=== PATIENT | male | born 1935 | race Caucasian/White ===

== ENCOUNTER 2017-01-08 10:56 | Inpatient (IN) | payer OTHER ==
[~2017-01-08] VITALS: Ht 172.7 cm; Wt 114.2 kg
[~2017-01-08 10:56] MED LIST: ADVAIR HFA120 INHALA IH; ALEVE220 M2 PO; ASPIR 8181 M1 PO; CARVEDILOL3.125 MG PO; COMBIVENT RESPIM4 GM IH; FUROSEMIDE20 MG PO; FUROSEMIDE40 MG PO; LASIX20 MG PO; LASIX40 MG PO; LIPITOR40 MG PO; LIPITOR80 MG PO; LISINOPRIL2.5 MG PO; LO-DOSE ASPIRIN81 M1 PO; PREDNISONE10 MG PO; PRINIVIL5 MG PO; SPIRIVA1 INHALATI IH; SPIRONOLACTONE25 MG PO; VICTOZA 2-0.6 MG/0.1 SC; VICTOZA 2-0.6 MG/0.1 SQ; VISINE15 ML BOTH EYES; ZESTRIL2.5 MG PO; ZITHROMAX500 MG PO
[2017-01-08 11:45] LABS: BASOPHIL COUNT 0.1 K/uL (0-0.1); EOSINOPHIL (%) 1.1 % (0-5); EOSINOPHIL COUNT 0.1 K/uL (0-0.3); IMMATURE GRANULOCYTE (%) 0.5 % (0.0-0.7); INSTRUMENT ABS NEUTROPHIL CT 6.4 K/uL; MCH 31.4 PG (29.0-34.0); MCHC 32.2 G/DL (30.0-36.0); MCV 97.7 FL (86-99); MEAN PLAT.VOLUME 11.9 uM^3 (9.0-12.4); MONOCYTE (%) 6.6 % (3-12); MONOCYTE COUNT 0.5 K/uL (0-0.8); NEUTROPHIL (%) 78.8 % (45-76); NEUTROPHIL COUNT 6.4 K/uL (1.8-6.4); PLATELET COUNT 147 K/uL (156-360); RBC DIS.WIDTH-CV 12.5 % (11.8-14.6); RBC DIS.WIDTH-SD 45.1 % (39-53); RED BLOOD COUNT 4.71 M/uL (4.00-5.50); WHITE BLOOD COUNT 8.2 K/uL (4.1-10.2)
[2017-01-08 11:56] LABS: CHLORIDE 103 mEq/L (99-109); POTASSIUM 4.6 mEq/L (3.7-5.4); SODIUM 139 mEq/L (136-147)
[2017-01-08 11:58] LABS: GLUCOSE 163 mg/dL (70-99)
[2017-01-08 11:59] LABS: ANION GAP 9 MEQ/L (2-14)
[2017-01-08 12:00] LABS: TOTAL BILIRUBIN 1.3 mg/dL (0.0-1.0)
[2017-01-08 12:01] LABS: ALKALINE PHOSPHATASE 44 IU/L (3-129)
[2017-01-08 12:02] LABS: GFR ESTIMATE (CALCULATED) 34 mL/min/
[2017-01-08 12:03] LABS: UREA NITROGEN (BUN) 28 mg/dL (9-23)
[2017-01-08 12:11] LABS: TROP-I INTERPRETATION NEGATIVE; TROPONIN-I 0.04 ng/mL (0.0-0.30)
[2017-01-08] MEDS ORDERED: VICTOZA 2-0.6 MG/0.1 SC (14:38)
[2017-01-08] MEDS ORDERED: ARTIFICIAL SALIVA (14:40)
[2017-01-08] MEDS ORDERED: CYANOCOBALAM1000 MCG PO (14:41)
[2017-01-08] MEDS ORDERED: PROAIR HFA8.5 GM IH (14:43)
[2017-01-08] MEDS ORDERED: FUROSEMIDE40 MG PO (14:43)
[2017-01-08 17:40] VITALS: BP 106/59
[2017-01-08 18:16] LABS: TROP-I INTERPRETATION NEGATIVE; TROPONIN-I 0.03 ng/mL (0.0-0.30)
[2017-01-08 22:25] LABS: POINT-OF-CARE METER ID UU13113831
[2017-01-09 01:05] VITALS: BP 112/64
[2017-01-09 01:16] LABS: TROP-I INTERPRETATION NEGATIVE; TROPONIN-I 0.02 ng/mL (0.0-0.30)
[2017-01-09 05:04] VITALS: BP 102/56
[2017-01-09 07:19] LABS: POINT-OF-CARE METER ID UU14188625
[2017-01-09 07:23] VITALS: BP 93/60
[2017-01-09 07:34] LABS: HEMATOCRIT 42.8 % (38.0-50.0); MCHC 32.7 G/DL (30.0-36.0); MCV 94.9 FL (86-99); MEAN PLAT.VOLUME 12.5 uM^3 (9.0-12.4); PLATELET COUNT 154 K/uL (156-360); RBC DIS.WIDTH-CV 12.4 % (11.8-14.6); RBC DIS.WIDTH-SD 43.4 % (39-53); RED BLOOD COUNT 4.51 M/uL (4.00-5.50); WHITE BLOOD COUNT 8.9 K/uL (4.1-10.2)
[2017-01-09 08:02] LABS: ANION GAP 13 MEQ/L (2-14); CHLORIDE 100 MEQ/L (99-109); GFR ESTIMATE (CALCULATED) 39 mL/min/; GLUCOSE 154 mg/dL (70-99); MAGNESIUM 2.2 mg/dl (1.3-2.7); POTASSIUM 4.4 MEQ/L (3.7-5.4); SAMPLE HEMOLYSIS CHECK 0; SAMPLE ICTERIC CHECK 0; SAMPLE LIPEMIA CHECK 0; SODIUM 139 MEQ/L (136-147); UREA NITROGEN (BUN) 31 mg/dL (9-23)
[2017-01-09 08:28] LABS: Estimated Average Glucose 174 mg/dL (70-123); HEMOGLOBIN A1c (GLYCOHEMOGLOB) 7.7 % HGB (Below 5.7)
[2017-01-09 11:11] LABS: POINT-OF-CARE METER ID UU14174225
[2017-01-09 15:08] VITALS: BP 106/59
[2017-01-10] VITALS: BP 96/53
[2017-01-10 07:11] LABS: HEMATOCRIT 44.2 % (38.0-50.0); MCH 32.5 PG (29.0-34.0); MCHC 33.9 G/DL (30.0-36.0); MCV 95.7 FL (86-99); MEAN PLAT.VOLUME 12.5 uM^3 (9.0-12.4); PLATELET COUNT 167 K/uL (156-360); RBC DIS.WIDTH-CV 12.8 % (11.8-14.6); RBC DIS.WIDTH-SD 44.7 % (39-53); RED BLOOD COUNT 4.62 M/uL (4.00-5.50); WHITE BLOOD COUNT 9.3 K/uL (4.1-10.2)
[2017-01-10 07:35] LABS: ANION GAP 10 MEQ/L (2-14); CHLORIDE 99 MEQ/L (99-109); GFR ESTIMATE (CALCULATED) 36 mL/min/; GLUCOSE 137 mg/dL (70-99); POTASSIUM 4.2 MEQ/L (3.7-5.4); SAMPLE HEMOLYSIS CHECK 1; SAMPLE ICTERIC CHECK 0; SAMPLE LIPEMIA CHECK 0; SODIUM 137 MEQ/L (136-147); UREA NITROGEN (BUN) 42 mg/dL (9-23); URIC ACID 10.6 mg/dL (3.1-9.2)
[2017-01-10 07:36] LABS: POINT-OF-CARE METER ID UU14188625
[2017-01-10 07:39] VITALS: BP 141/80
[2017-01-10 11:03] LABS: POINT-OF-CARE METER ID UU14188625
[2017-01-10 13:08] LABS: ADD MIUA? NO; BILIRUBIN NEGATIVE; BLOOD NEGATIVE; COLOR STRAW ((YELLOW)); GLUCOSE (STRIP) NEGATIVE; KETONES NEGATIVE; LEUKOCYTES NEGATIVE; NITRITE NEGATIVE; PROTEIN (STRIP) NEGATIVE; SPECIFIC GRAVITY 1.006 (1.000-1.030); UROBILINOGEN 0.2 MG/DL (0.2-1.0)
[2017-01-10 13:50] LABS: UR CREATININE CONCENTRATION 31.3 MG/DL
[2017-01-10 14:31] VITALS: BP 84/52
[2017-01-10 16:05] LABS: POINT-OF-CARE METER ID UU14188625
[2017-01-10 21:02] LABS: POINT-OF-CARE METER ID UU14174225
[2017-01-11 06:38] LABS: ANION GAP 8 MEQ/L (2-14); CHLORIDE 98 MEQ/L (99-109); GFR ESTIMATE (CALCULATED) 34 mL/min/; GLUCOSE 151 mg/dL (70-99); POTASSIUM 3.7 MEQ/L (3.7-5.4); SAMPLE HEMOLYSIS CHECK 0; SAMPLE ICTERIC CHECK 0; SAMPLE LIPEMIA CHECK 0; SODIUM 138 MEQ/L (136-147); UREA NITROGEN (BUN) 42 mg/dL (9-23)
[2017-01-11 07:33] VITALS: BP 89/57
[2017-01-11 07:38] LABS: POINT-OF-CARE METER ID UU14188625
[2017-01-11 08:25] LABS: HEMATOCRIT 42.7 % (38.0-50.0); MCH 31.7 PG (29.0-34.0); MEAN PLAT.VOLUME 12.1 uM^3 (9.0-12.4); PLATELET COUNT 152 K/uL (156-360); RBC DIS.WIDTH-CV 12.7 % (11.8-14.6); RBC DIS.WIDTH-SD 45.1 % (39-53); RED BLOOD COUNT 4.45 M/uL (4.00-5.50); WHITE BLOOD COUNT 6.6 K/uL (4.1-10.2)
[2017-01-11 11:28] LABS: POINT-OF-CARE METER ID UU14188625
[2017-01-11 17:00] VITALS: BP 113/71
[2017-01-11 22:21] LABS: POINT-OF-CARE METER ID UU14188625
[2017-01-11 23:50] VITALS: BP 83/52
[2017-01-12 06:51] LABS: ANION GAP 7 MEQ/L (2-14); CHLORIDE 99 MEQ/L (99-109); GFR ESTIMATE (CALCULATED) 41 mL/min/; GLUCOSE 146 mg/dL (70-99); POTASSIUM 4.3 MEQ/L (3.7-5.4); SAMPLE HEMOLYSIS CHECK 2; SAMPLE ICTERIC CHECK 0; SAMPLE LIPEMIA CHECK 0; SODIUM 137 MEQ/L (136-147); UREA NITROGEN (BUN) 35 mg/dL (9-23)
[2017-01-12 07:33] LABS: POINT-OF-CARE METER ID UU14174225
[2017-01-12 07:45] VITALS: BP 95/55
[2017-01-12 11:23] LABS: POINT-OF-CARE METER ID UU14174225
[2017-01-12] MEDS ORDERED: ULORIC40 MG PO ×2 (11:29→13:25)
[2017-01-12] MEDS ORDERED: BUMETANIDE1 MG PO ×2 (11:29→13:25)
== END 2017-01-12 14:03 | disposition home or self-care (01) | DRG 291 ==
LOC: EME 10:56 → EDOF 15:53 → 5WEST 17:33 → 5SOUTH 01-09 04:17 → 5WEST 01-09 04:17 → 5SOUTH 01-09 04:57
PROVIDERS: Emergency Medicine; Family Medicine; Hospitalist; Internal Medicine; Internal Medicine Nephrology; Nurse Practitioner Adult Health; Physician Assistant Medical
DX: I13.0 Hypertensive heart and chronic kidney disease with heart failure and stage 1 through stage 4 chronic kidney disease, or unspecified chronic kidney disease (principal); I50.23 Acute on chronic systolic (congestive) heart failure; N18.3 Chronic kidney disease, stage 3 (moderate); E11.22 Type 2 diabetes mellitus with diabetic chronic kidney disease; I25.10 Atherosclerotic heart disease of native coronary artery without angina pectoris; J44.1 Chronic obstructive pulmonary disease with (acute) exacerbation; G47.33 Obstructive sleep apnea (adult) (pediatric); I42.9 Cardiomyopathy, unspecified; E78.5 Hyperlipidemia, unspecified; Z87.891 Personal history of nicotine dependence; N17.9 Acute kidney failure, unspecified; I95.9 Hypotension, unspecified; E66.9 Obesity, unspecified; Z68.38 Body mass index [BMI] 38.0-38.9, adult; K21.9 Gastro-esophageal reflux disease without esophagitis; J96.01 Acute respiratory failure with hypoxia
CPT/HCPCS: 71010; 71020; 71250; 76770; 80048; 80053; 80069; 81003; 82570; 82948; 83036; 83735; 83880; 84156; 84484; 84550; 85025; 85027; 93005; 94010; 94640; 94640 76; 94644; 99202; 99281; 99285; G0378; J1644; J1815; J1940; J2930

== ENCOUNTER 2017-02-17 07:24 | Day surgery (SDC) | payer OTHER ==
[~2017-02-17] VITALS: Ht 172.7 cm; Wt 111.0 kg
[~2017-02-17 07:24] MED LIST changes: +ALLOPURINOL100 MG PO; +ARTIFICIAL SALIVA; +BUMETANIDE1 MG PO; +CARVEDILOL6.25 MG PO; +CYANOCOBALAM1000 MCG PO; +LISINOPRIL5 MG PO; +PROAIR HFA8.5 GM IH; +PROVENTIL,2.5 MG/3 M IH; +ULORIC40 MG PO
[2017-02-17] MEDS ORDERED: ASPIR 8181 M1 PO (08:14)
[2017-02-17 09:04] LABS: POINT-OF-CARE METER ID UU13113696
== END 2017-02-17 16:40 | disposition home or self-care (01) ==
LOC: CATH 07:24
PROVIDERS: Internal Medicine Cardiovascular Disease
DX: I25.10 Atherosclerotic heart disease of native coronary artery without angina pectoris (principal); I42.0 Dilated cardiomyopathy; I13.0 Hypertensive heart and chronic kidney disease with heart failure and stage 1 through stage 4 chronic kidney disease, or unspecified chronic kidney disease; E11.22 Type 2 diabetes mellitus with diabetic chronic kidney disease; N18.3 Chronic kidney disease, stage 3 (moderate); I50.22 Chronic systolic (congestive) heart failure; E66.01 Morbid (severe) obesity due to excess calories; Z68.39 Body mass index [BMI] 39.0-39.9, adult; E78.2 Mixed hyperlipidemia; I45.10 Unspecified right bundle-branch block; Z79.82 Long term (current) use of aspirin
CPT/HCPCS: 82948; C1769; C1887; C1894; J1644; J1940; J2250; J3010

== ENCOUNTER 2017-03-17 11:34 | Inpatient (IN) | payer OTHER ==
[~2017-03-17] VITALS: Ht 172.7 cm; Wt 110.5 kg
[2017-03-17 12:13] LABS: HEMATOCRIT 44.9 % (38.0-50.0); MCH 31.1 PG (29.0-34.0); MCHC 33.6 G/DL (30.0-36.0); MCV 92.6 FL (86-99); MEAN PLAT.VOLUME 11.5 uM^3 (9.0-12.4); PLATELET COUNT 139 K/uL (156-360); RBC DIS.WIDTH-CV 12.7 % (11.8-14.6); RBC DIS.WIDTH-SD 43.4 % (39-53); RED BLOOD COUNT 4.85 M/uL (4.00-5.50); WHITE BLOOD COUNT 8.1 K/uL (4.1-10.2)
[2017-03-17 12:20] LABS: INTER. NORMALIZED RATIO 1.1; PROTHROMBIN TIME 12.4 SEC (10.2-12.9)
[2017-03-17 12:27] LABS: CHLORIDE 102 mEq/L (99-109); POTASSIUM 3.8 mEq/L (3.7-5.4); SODIUM 141 mEq/L (136-147)
[2017-03-17 12:28] LABS: GLUCOSE 148 mg/dL (70-99)
[2017-03-17 12:30] LABS: ANION GAP 10 MEQ/L (2-14)
[2017-03-17 12:32] LABS: GFR ESTIMATE (CALCULATED) 41 mL/min/
[2017-03-17 12:33] LABS: UREA NITROGEN (BUN) 25 mg/dL (9-23)
[2017-03-17 12:35] LABS: TROP-I INTERPRETATION NEGATIVE; TROPONIN-I 0.05 ng/mL (0.0-0.30)
[2017-03-17] MEDS ORDERED: SPIRIVA1 INHALATI IH (17:53)
[2017-03-17] MEDS ORDERED: LISINOPRIL2.5 MG PO (17:54)
[2017-03-17] MEDS ORDERED: BUMETANIDE2 MG PO (17:54)
[2017-03-17] MEDS ORDERED: ULORIC40 MG PO (17:55)
[2017-03-17] MEDS ORDERED: SPIRONOLACTONE25 MG PO (17:56)
[2017-03-17] MEDS ORDERED: VITAMIN B12-FO1 EACH PO (17:56)
[2017-03-17 19:43] LABS: TROP-I INTERPRETATION NEGATIVE; TROPONIN-I 0.05 ng/mL (0.0-0.30)
[2017-03-17 21:55] VITALS: BP 122/69
[2017-03-18] VITALS (7 sets, daily range): BP systolic 81–117; BP diastolic 50–73
[2017-03-18 00:16] LABS: POINT-OF-CARE METER ID UU14174225
[2017-03-18 01:46] LABS: TROP-I INTERPRETATION NEGATIVE; TROPONIN-I 0.04 ng/mL (0.0-0.30)
[2017-03-18 06:39] LABS: ANION GAP 11 MEQ/L (2-14); CHLORIDE 100 MEQ/L (99-109); GFR ESTIMATE (CALCULATED) 44 mL/min/; GLUCOSE 177 mg/dL (70-99); POTASSIUM 4.1 MEQ/L (3.7-5.4); SAMPLE HEMOLYSIS CHECK 0; SAMPLE ICTERIC CHECK 0; SAMPLE LIPEMIA CHECK 0; SODIUM 139 MEQ/L (136-147); UREA NITROGEN (BUN) 29 mg/dL (9-23)
[2017-03-18 07:26] LABS: POINT-OF-CARE METER ID UU13113717
[2017-03-18 11:33] LABS: POINT-OF-CARE METER ID UU13113717
[2017-03-18 17:41] LABS: POINT-OF-CARE METER ID UU13113717
[2017-03-18 21:41] LABS: POINT-OF-CARE METER ID UU13113717
[2017-03-19 03:57] VITALS: BP 113/55
[2017-03-19 07:56] VITALS: BP 95/67
[2017-03-19 12:32] LABS: ANION GAP 12 MEQ/L (2-14); CHLORIDE 98 MEQ/L (99-109); GFR ESTIMATE (CALCULATED) 48 mL/min/; GLUCOSE 242 mg/dL (70-99); MAGNESIUM 2.1 mg/dl (1.3-2.7); POTASSIUM 4.5 MEQ/L (3.7-5.4); SAMPLE HEMOLYSIS CHECK 0; SAMPLE ICTERIC CHECK 0; SAMPLE LIPEMIA CHECK 0; SODIUM 134 MEQ/L (136-147); UREA NITROGEN (BUN) 43 mg/dL (9-23)
[2017-03-19 12:33] LABS: POINT-OF-CARE METER ID UU14188625
[2017-03-19 12:46] VITALS: BP 114/63
[2017-03-19 15:52] VITALS: BP 105/68
[2017-03-19 20:16] VITALS: BP 114/73
[2017-03-19 23:53] VITALS: BP 108/72
[2017-03-20 03:39] VITALS: BP 112/78
[2017-03-20 07:41] LABS: POINT-OF-CARE METER ID UU14188625
[2017-03-20 07:46] VITALS: BP 132/82
[2017-03-20 10:12] LABS: HEMATOCRIT 48.6 % (38.0-50.0); MCH 31.5 PG (29.0-34.0); MCHC 33.5 G/DL (30.0-36.0); MCV 93.8 FL (86-99); MEAN PLAT.VOLUME 12.5 uM^3 (9.0-12.4); PLATELET COUNT 186 K/uL (156-360); RBC DIS.WIDTH-CV 13.1 % (11.8-14.6); RBC DIS.WIDTH-SD 44.8 % (39-53); RED BLOOD COUNT 5.18 M/uL (4.00-5.50); WHITE BLOOD COUNT 12.3 K/uL (4.1-10.2)
[2017-03-20 10:18] LABS: ANION GAP 14 MEQ/L (2-14); CHLORIDE 93 MEQ/L (99-109); GFR ESTIMATE (CALCULATED) 36 mL/min/; GLUCOSE 267 mg/dL (70-99); POTASSIUM 4.8 MEQ/L (3.7-5.4); SAMPLE HEMOLYSIS CHECK 0; SAMPLE ICTERIC CHECK 0; SAMPLE LIPEMIA CHECK 0; SODIUM 134 MEQ/L (136-147); UREA NITROGEN (BUN) 53 mg/dL (9-23)
[2017-03-20] MEDS ORDERED: PREDNISONE20 MG PO (10:43)
[2017-03-20 11:13] VITALS: BP 111/73
[2017-03-20 11:19] LABS: POINT-OF-CARE METER ID UU14188625
== END 2017-03-20 13:23 | disposition home health service (06) | DRG 291 ==
LOC: EME 11:34 → 5SOUTH 17:57 → EDOF 17:57 → 5SOUTH 21:36
PROVIDERS: Emergency Medicine; Hospitalist; Internal Medicine; Physician Assistant Medical
DX: I50.23 Acute on chronic systolic (congestive) heart failure (principal); J96.01 Acute respiratory failure with hypoxia; J44.1 Chronic obstructive pulmonary disease with (acute) exacerbation; I25.5 Ischemic cardiomyopathy; E11.22 Type 2 diabetes mellitus with diabetic chronic kidney disease; I13.0 Hypertensive heart and chronic kidney disease with heart failure and stage 1 through stage 4 chronic kidney disease, or unspecified chronic kidney disease; N18.3 Chronic kidney disease, stage 3 (moderate); G47.33 Obstructive sleep apnea (adult) (pediatric); I25.10 Atherosclerotic heart disease of native coronary artery without angina pectoris; I47.2 Ventricular tachycardia; J98.11 Atelectasis; E78.5 Hyperlipidemia, unspecified; K58.0 Irritable bowel syndrome with diarrhea; K21.9 Gastro-esophageal reflux disease without esophagitis; Z68.37 Body mass index [BMI] 37.0-37.9, adult; Z79.4 Long term (current) use of insulin; Z79.82 Long term (current) use of aspirin; Z87.891 Personal history of nicotine dependence; Z79.899 Other long term (current) drug therapy
CPT/HCPCS: 71020; 80048; 82948; 83735; 83880; 84484; 85027; 85610; 85730; 93005; 94640; 94640 76; 94760; 94799; 99202; 99281; 99285; J1644; J1815; J1940; J2920; J2930; J7512

== ENCOUNTER 2017-04-06 14:49 | Inpatient (IN) | payer OTHER ==
[~2017-04-06] VITALS: Ht 1849.1 cm; Wt 111.0 kg
[~2017-04-06 14:49] MED LIST changes: +BUMETANIDE2 MG PO; +PREDNISONE20 MG PO; +VITAMIN B12-FO1 EACH PO
[2017-04-06 15:25] LABS: HEMATOCRIT 43.9 % (38.0-50.0); MCH 31.3 PG (29.0-34.0); MCHC 33.3 G/DL (30.0-36.0); MCV 94.2 FL (86-99); MEAN PLAT.VOLUME 11.4 uM^3 (9.0-12.4); PLATELET COUNT 137 K/uL (156-360); RBC DIS.WIDTH-CV 13.8 % (11.8-14.6); RED BLOOD COUNT 4.66 M/uL (4.00-5.50); WHITE BLOOD COUNT 10.3 K/uL (4.1-10.2)
[2017-04-06 15:33] LABS: CHLORIDE 97 mEq/L (99-109); POTASSIUM 3.8 mEq/L (3.7-5.4); SODIUM 136 mEq/L (136-147)
[2017-04-06 15:36] LABS: GLUCOSE 118 mg/dL (70-99)
[2017-04-06 15:37] LABS: ANION GAP 9 MEQ/L (2-14)
[2017-04-06 15:38] LABS: TOTAL BILIRUBIN 1.2 mg/dL (0.0-1.0)
[2017-04-06 15:39] LABS: ALKALINE PHOSPHATASE 63 IU/L (3-129); GFR ESTIMATE (CALCULATED) 36 mL/min/
[2017-04-06 15:40] LABS: UREA NITROGEN (BUN) 35 mg/dL (9-23)
[2017-04-06 15:46] LABS: TROP-I INTERPRETATION NEGATIVE; TROPONIN-I 0.04 ng/mL (0.0-0.30)
[2017-04-07 00:01] LABS: TROP-I INTERPRETATION NEGATIVE; TROPONIN-I 0.04 ng/mL (0.0-0.30)
[2017-04-07 06:31] LABS: HEMATOCRIT 41.9 % (38.0-50.0); MCH 31.1 PG (29.0-34.0); MCHC 33.4 G/DL (30.0-36.0); MCV 93.1 FL (86-99); MEAN PLAT.VOLUME 11.6 uM^3 (9.0-12.4); PLATELET COUNT 127 K/uL (156-360); RBC DIS.WIDTH-CV 13.7 % (11.8-14.6); RBC DIS.WIDTH-SD 46.3 % (39-53); WHITE BLOOD COUNT 6.8 K/uL (4.1-10.2)
[2017-04-07 06:53] LABS: ANION GAP 10 MEQ/L (2-14); CHLORIDE 94 MEQ/L (99-109); GFR ESTIMATE (CALCULATED) 36 mL/min/; SAMPLE HEMOLYSIS CHECK 0; SAMPLE ICTERIC CHECK 0; SAMPLE LIPEMIA CHECK 0; SODIUM 133 MEQ/L (136-147); UREA NITROGEN (BUN) 39 mg/dL (9-23)
[2017-04-07 07:05] LABS: GLUCOSE 252 mg/dL (70-99)
[2017-04-07 07:30] VITALS: BP 98/65
[2017-04-07 07:45] LABS: Estimated Average Glucose 157 mg/dL (70-123); HEMOGLOBIN A1c (GLYCOHEMOGLOB) 7.1 % HGB (Below 5.7)
[2017-04-07] MEDS ORDERED: ALDACTONE25 MG PO (09:31)
[2017-04-07] MEDS ORDERED: ZESTRIL2.5 MG PO (09:32)
[2017-04-07 16:14] VITALS: BP 93/50
[2017-04-07 16:17] VITALS: BP 102/53
[2017-04-07 23:36] LABS: TROP-I INTERPRETATION NEGATIVE; TROPONIN-I 0.02 ng/mL (0.0-0.30)
[2017-04-08 00:03] VITALS: BP 97/62
[2017-04-08 04:30] VITALS: BP 98/65
[2017-04-08 07:10] VITALS: BP 100/67
[2017-04-08 07:31] LABS: EOSINOPHIL (%) 0 % (0-5); HEMATOCRIT 44.9 % (38.0-50.0); IMMATURE GRANULOCYTE (%) 0.4 % (0.0-0.7); INSTRUMENT ABS NEUTROPHIL CT 9.9 K/uL; LYMPHOCYTE COUNT 0.8 K/uL (1.0-2.8); MCH 32.5 PG (29.0-34.0); MCHC 34.7 G/DL (30.0-36.0); MCV 93.5 FL (86-99); MEAN PLAT.VOLUME 11.7 uM^3 (9.0-12.4); MONOCYTE (%) 3.3 % (3-12); MONOCYTE COUNT 0.4 K/uL (0-0.8); NEUTROPHIL (%) 89.4 % (45-76); NEUTROPHIL COUNT 9.9 K/uL (1.8-6.4); PLATELET COUNT 139 K/uL (156-360); RBC DIS.WIDTH-CV 13.8 % (11.8-14.6); RBC DIS.WIDTH-SD 46.5 % (39-53); WHITE BLOOD COUNT 11.1 K/uL (4.1-10.2)
[2017-04-08 07:47] LABS: ADD MIUA? YES; BILIRUBIN NEGATIVE; BLOOD NEGATIVE; COLOR YELLOW ((YELLOW)); GLUCOSE (STRIP) NEGATIVE; KETONES NEGATIVE; LEUKOCYTES MODERATE; NITRITE NEGATIVE; PROTEIN (STRIP) NEGATIVE; UROBILINOGEN 0.2 MG/DL (0.2-1.0)
[2017-04-08 07:58] LABS: ALKALINE PHOSPHATASE 54 IU/L (3-129); ANION GAP 11 MEQ/L (2-14); CHLORIDE 96 MEQ/L (99-109); GFR ESTIMATE (CALCULATED) 32 mL/min/; GLUCOSE 191 mg/dL (70-99); MAGNESIUM 1.9 mg/dl (1.3-2.7); POTASSIUM 4.3 MEQ/L (3.7-5.4); SAMPLE HEMOLYSIS CHECK 0; SAMPLE ICTERIC CHECK 0; SAMPLE LIPEMIA CHECK 0; SODIUM 134 MEQ/L (136-147); TOTAL BILIRUBIN 0.8 MG/DL (0.0-1.0); UREA NITROGEN (BUN) 47 mg/dL (9-23); URIC ACID 10.5 mg/dL (3.1-9.2)
[2017-04-08 08:05] LABS: BACTERIA RARE /HPF; EPITHELIAL CELLS NONE SEEN /HPF; MUCUS TRACE /LPF; RED BLOOD CELLS 0-5 /HPF (0-5); WHITE BLOOD CELLS 0-5 /HPF (0-5)
[2017-04-08 10:34] LABS: UR CREATININE CONCENTRATION 71.2 MG/DL
[2017-04-08 11:48] LABS: POINT-OF-CARE METER ID UU13113725
[2017-04-08 11:50] VITALS: BP 103/66
[2017-04-08 15:40] VITALS: BP 90/64
[2017-04-08 22:07] LABS: POINT-OF-CARE METER ID UU13113725
[2017-04-09] VITALS (8 sets, daily range): BP systolic 90–106; BP diastolic 52–66
[2017-04-09 05:51] LABS: POINT-OF-CARE METER ID UU13113725
[2017-04-09 06:31] LABS: ANION GAP 11 MEQ/L (2-14); CHLORIDE 93 MEQ/L (99-109); GFR ESTIMATE (CALCULATED) 31 mL/min/; GLUCOSE 203 mg/dL (70-99); POTASSIUM 4.6 MEQ/L (3.7-5.4); SAMPLE HEMOLYSIS CHECK 0; SAMPLE ICTERIC CHECK 0; SAMPLE LIPEMIA CHECK 0; SODIUM 134 MEQ/L (136-147); UREA NITROGEN (BUN) 55 mg/dL (9-23)
[2017-04-09] MEDS ORDERED: ELIQUIS2.5 MG PO (10:07)
[2017-04-09] MEDS ORDERED: DELTASONE20 M1 PO ×2 (11:05→12:29)
[2017-04-09] MEDS ORDERED: DUONEB 2.5-0.5 M3 ML AEROSOL ×2 (11:10→12:29)
[2017-04-09] MEDS ORDERED: ALLOPURINOL100 MG PO (11:39)
[2017-04-09] MEDS ORDERED: BUMETANIDE2 MG PO ×2 (11:39→12:29)
[2017-04-09 11:55] LABS: POINT-OF-CARE METER ID UU13113725
[2017-04-09] MEDS ORDERED: SPIRIVA1 INHALATI IH (12:28)
[2017-04-09] MEDS ORDERED: VICTOZA 2-0.6 MG/0.1 SC (12:28)
[2017-04-09] MEDS ORDERED: ALDACTONE25 MG PO (12:28)
[2017-04-09] MEDS ORDERED: ZESTRIL2.5 MG PO (12:28)
[2017-04-09 17:07] LABS: POINT-OF-CARE METER ID UU13113725
== END 2017-04-09 18:05 | disposition home health service (06) | DRG 291 ==
LOC: EME 14:49 → 5EAST 22:36 → EDOF 22:36 → ENRESERV 22:44 → 5EAST 04-07 00:14 → ENPENDDIS 04-09 → 5EAST 04-09 18:05
PROVIDERS: Hospitalist; Internal Medicine Nephrology
DX: I13.0 Hypertensive heart and chronic kidney disease with heart failure and stage 1 through stage 4 chronic kidney disease, or unspecified chronic kidney disease (principal); J44.1 Chronic obstructive pulmonary disease with (acute) exacerbation; I50.23 Acute on chronic systolic (congestive) heart failure; N18.3 Chronic kidney disease, stage 3 (moderate); E11.22 Type 2 diabetes mellitus with diabetic chronic kidney disease; E66.01 Morbid (severe) obesity due to excess calories; E78.5 Hyperlipidemia, unspecified; G47.33 Obstructive sleep apnea (adult) (pediatric); I25.10 Atherosclerotic heart disease of native coronary artery without angina pectoris; I25.82 Chronic total occlusion of coronary artery; I48.91 Unspecified atrial fibrillation; Z91.19 Patient's noncompliance with other medical treatment and regimen; Z91.11 Patient's noncompliance with dietary regimen; K58.9 Irritable bowel syndrome, unspecified; K21.9 Gastro-esophageal reflux disease without esophagitis; I42.8 Other cardiomyopathies; Z68.37 Body mass index [BMI] 37.0-37.9, adult
CPT/HCPCS: 71020; 80048; 80053; 81003; 82570; 82948; 83036; 83735; 83880; 84100; 84156; 84443; 84484; 84550; 85025; 85027; 93005; 94640; 94640 76; 94760; 94799; 99202; 99281; 99285; J1644; J1815; J1940; J1956; J2920; J2930; J7040

== ENCOUNTER 2017-04-24 23:02 | Inpatient (IN) | payer OTHER ==
[~2017-04-24] VITALS: Ht 172.7 cm; Wt 118.0 kg
[~2017-04-24 23:02] MED LIST changes: +ALDACTONE25 MG PO; +DELTASONE20 M1 PO; +DUONEB 2.5-0.5 M3 ML AEROSOL; +ELIQUIS2.5 MG PO
[2017-04-25 00:31] LABS: HEMATOCRIT 47.9 % (38.0-50.0); MCH 31.8 PG (29.0-34.0); MCHC 33.4 G/DL (30.0-36.0); MCV 95.2 FL (86-99); MEAN PLAT.VOLUME 11.2 uM^3 (9.0-12.4); PLATELET COUNT 134 K/uL (156-360); RBC DIS.WIDTH-CV 14.5 % (11.8-14.6); RBC DIS.WIDTH-SD 49.8 % (39-53); RED BLOOD COUNT 5.03 M/uL (4.00-5.50); WHITE BLOOD COUNT 8.9 K/uL (4.1-10.2)
[2017-04-25 00:38] LABS: INTER. NORMALIZED RATIO 1.2; PROTHROMBIN TIME 13.4 SEC (10.2-12.9)
[2017-04-25 00:40] LABS: PTT 32.8 SEC (25-37)
[2017-04-25 00:41] LABS: ADD MIUA? NO; BILIRUBIN NEGATIVE; BLOOD NEGATIVE; COLOR YELLOW ((YELLOW)); GLUCOSE (STRIP) NEGATIVE; KETONES NEGATIVE; LEUKOCYTES NEGATIVE; NITRITE NEGATIVE; PROTEIN (STRIP) NEGATIVE; SPECIFIC GRAVITY 1.014 (1.000-1.030); UCUL ADDED? NO
[2017-04-25 00:44] LABS: CHLORIDE 95 mEq/L (99-109); SODIUM 138 mEq/L (136-147)
[2017-04-25 00:46] LABS: GLUCOSE 124 mg/dL (70-99)
[2017-04-25 00:47] LABS: ANION GAP 12 MEQ/L (2-14)
[2017-04-25 00:48] LABS: TOTAL BILIRUBIN 1.2 mg/dL (0.0-1.0)
[2017-04-25 00:49] LABS: ALKALINE PHOSPHATASE 62 IU/L (3-129)
[2017-04-25 00:50] LABS: GFR ESTIMATE (CALCULATED) 32 mL/min/
[2017-04-25 00:51] LABS: UREA NITROGEN (BUN) 37 mg/dL (9-23)
[2017-04-25 00:52] LABS: TROP-I INTERPRETATION NEGATIVE; TROPONIN-I 0.06 ng/mL (0.0-0.30)
[2017-04-25 00:53] LABS: LIPASE 40 U/L (1.0-51.0)
[2017-04-25 03:11] VITALS: BP 103/73
[2017-04-25 06:33] LABS: HEMATOCRIT 45.4 % (38.0-50.0); MCH 30.8 PG (29.0-34.0); MCHC 32.4 G/DL (30.0-36.0); MCV 95.2 FL (86-99); MEAN PLAT.VOLUME 11.6 uM^3 (9.0-12.4); PLATELET COUNT 127 K/uL (156-360); RBC DIS.WIDTH-CV 14.3 % (11.8-14.6); RBC DIS.WIDTH-SD 49.4 % (39-53); RED BLOOD COUNT 4.77 M/uL (4.00-5.50); WHITE BLOOD COUNT 8.3 K/uL (4.1-10.2)
[2017-04-25 07:10] LABS: TROP-I INTERPRETATION NEGATIVE; TROPONIN-I 0.05 ng/mL (0.0-0.30)
[2017-04-25 07:11] LABS: ANION GAP 8 MEQ/L (2-14); CHLORIDE 94 MEQ/L (99-109); GFR ESTIMATE (CALCULATED) 34 mL/min/; GLUCOSE 107 mg/dL (70-99); SAMPLE HEMOLYSIS CHECK 0; SAMPLE ICTERIC CHECK 0; SAMPLE LIPEMIA CHECK 0; SODIUM 136 MEQ/L (136-147); UREA NITROGEN (BUN) 34 mg/dL (9-23)
[2017-04-25 07:12] LABS: POTASSIUM 3.7 MEQ/L (3.7-5.4)
[2017-04-25 08:14] VITALS: BP 97/55
[2017-04-25 08:46] LABS: POINT-OF-CARE METER ID UU14174225
[2017-04-25 12:00] VITALS: BP 104/69
[2017-04-25 12:34] LABS: TROP-I INTERPRETATION NEGATIVE; TROPONIN-I 0.04 ng/mL (0.0-0.30)
[2017-04-25 15:47] VITALS: BP 116/86
[2017-04-25 19:46] VITALS: BP 111/63
[2017-04-25 22:03] LABS: ANION GAP 13 MEQ/L (2-14); CHLORIDE 92 MEQ/L (99-109); GFR ESTIMATE (CALCULATED) 31 mL/min/; GLUCOSE 121 mg/dL (70-99); POTASSIUM 4.3 MEQ/L (3.7-5.4); SAMPLE HEMOLYSIS CHECK 0; SAMPLE ICTERIC CHECK 0; SAMPLE LIPEMIA CHECK 0; SODIUM 133 MEQ/L (136-147); UREA NITROGEN (BUN) 34 mg/dL (9-23)
[2017-04-26] VITALS: BP 94/64
[2017-04-26 08:37] LABS: POINT-OF-CARE METER ID UU14174225
[2017-04-26 08:40] VITALS: BP 133/63
[2017-04-26] MEDS ORDERED: LO-DOSE ASPIRIN81 M1 PO (11:24)
[2017-04-26] MEDS ORDERED: PROAIR HFA8.5 GM IH (11:25)
[2017-04-26] MEDS ORDERED: VICTOZA 2-0.6 MG/0.1 SC (11:25)
[2017-04-26] MEDS ORDERED: ALLOPURINOL100 MG PO (11:26)
[2017-04-26] MEDS ORDERED: PROVENTIL,2.5 MG/3 M IH (11:29)
[2017-04-26] MEDS ORDERED: BUMETANIDE2 MG PO (11:29)
[2017-04-26] MEDS ORDERED: SPIRIVA1 INHALATI IH (11:29)
[2017-04-26] MEDS ORDERED: ALDACTONE25 MG PO (11:30)
[2017-04-26] MEDS ORDERED: ELIQUIS2.5 MG PO (11:30)
[2017-04-26] MEDS ORDERED: LISINOPRIL2.5 MG PO (11:30)
[2017-04-26] MEDS ORDERED: SYMBICORT60 INHALAT IH (11:31)
[2017-04-26 12:09] LABS: POINT-OF-CARE METER ID UU14174225
[2017-04-26 12:23] LABS: ANION GAP 8 MEQ/L (2-14); CHLORIDE 93 MEQ/L (99-109); POTASSIUM 3.7 MEQ/L (3.7-5.4); SAMPLE HEMOLYSIS CHECK 0; SAMPLE ICTERIC CHECK 0; SAMPLE LIPEMIA CHECK 0; SODIUM 134 MEQ/L (136-147)
[2017-04-26 12:30] LABS: GFR ESTIMATE (CALCULATED) 34 mL/min/; GLUCOSE 88 mg/dL (70-99); UREA NITROGEN (BUN) 38 mg/dL (9-23)
[2017-04-26 17:20] LABS: POINT-OF-CARE METER ID UU14174225
[2017-04-26 17:54] VITALS: BP 128/64
[2017-04-26 20:05] VITALS: BP 76/57
[2017-04-26 20:21] VITALS: BP 80/60
[2017-04-26 22:29] VITALS: BP 114/82
[2017-04-27 04:00] VITALS: BP 81/60
[2017-04-27 07:18] LABS: ANION GAP 11 MEQ/L (2-14); CHLORIDE 93 MEQ/L (99-109); GFR ESTIMATE (CALCULATED) 28 mL/min/; POTASSIUM 3.6 MEQ/L (3.7-5.4); SAMPLE HEMOLYSIS CHECK 0; SAMPLE ICTERIC CHECK 0; SAMPLE LIPEMIA CHECK 0; SODIUM 135 MEQ/L (136-147); UREA NITROGEN (BUN) 41 mg/dL (9-23)
[2017-04-27 07:19] LABS: GLUCOSE 179 mg/dL (70-99)
[2017-04-27 07:36] VITALS: BP 89/50
[2017-04-27 11:25] VITALS: BP 102/63
[2017-04-27 15:28] VITALS: BP 82/60
[2017-04-27 20:11] VITALS: BP 86/62
[2017-04-27 23:23] VITALS: BP 86/49
[2017-04-28 04:05] VITALS: BP 89/64
[2017-04-28 06:02] LABS: HEMATOCRIT 43.5 % (38.0-50.0); MCH 31.3 PG (29.0-34.0); MCHC 33.3 G/DL (30.0-36.0); PLATELET COUNT 128 K/uL (156-360); RBC DIS.WIDTH-CV 14.2 % (11.8-14.6); RBC DIS.WIDTH-SD 48.5 % (39-53); RED BLOOD COUNT 4.63 M/uL (4.00-5.50); WHITE BLOOD COUNT 8.1 K/uL (4.1-10.2)
[2017-04-28 06:35] LABS: ANION GAP 10 MEQ/L (2-14); CHLORIDE 92 MEQ/L (99-109); GFR ESTIMATE (CALCULATED) 32 mL/min/; POTASSIUM 3.9 MEQ/L (3.7-5.4); SAMPLE HEMOLYSIS CHECK 0; SAMPLE ICTERIC CHECK 0; SAMPLE LIPEMIA CHECK 0; SODIUM 135 MEQ/L (136-147); UREA NITROGEN (BUN) 43 mg/dL (9-23)
[2017-04-28 06:36] LABS: GLUCOSE 111 mg/dL (70-99)
[2017-04-28 08:22] VITALS: BP 92/62
[2017-04-28 08:44] LABS: MAGNESIUM 1.9 mg/dl (1.3-2.7)
[2017-04-28 11:49] LABS: POINT-OF-CARE METER ID UU14174225
[2017-04-28 12:04] VITALS: BP 93/66
[2017-04-28 16:17] VITALS: BP 107/75
[2017-04-28 19:44] VITALS: BP 96/62
[2017-04-28 21:05] LABS: POINT-OF-CARE METER ID UU13113717
[2017-04-28 23:32] VITALS: BP 118/58
[2017-04-29 03:54] VITALS: BP 110/78
[2017-04-29 06:26] LABS: HEMATOCRIT 46.7 % (38.0-50.0); MCH 31.2 PG (29.0-34.0); MCV 94.5 FL (86-99); MEAN PLAT.VOLUME 11.2 uM^3 (9.0-12.4); PLATELET COUNT 140 K/uL (156-360); RBC DIS.WIDTH-CV 14.2 % (11.8-14.6); RBC DIS.WIDTH-SD 49.1 % (39-53); RED BLOOD COUNT 4.94 M/uL (4.00-5.50); WHITE BLOOD COUNT 7.7 K/uL (4.1-10.2)
[2017-04-29 06:54] LABS: ANION GAP 12 MEQ/L (2-14); CHLORIDE 91 MEQ/L (99-109); GFR ESTIMATE (CALCULATED) 31 mL/min/; GLUCOSE 120 mg/dL (70-99); SAMPLE HEMOLYSIS CHECK 1; SAMPLE ICTERIC CHECK 0; SAMPLE LIPEMIA CHECK 0; SODIUM 136 MEQ/L (136-147); UREA NITROGEN (BUN) 47 mg/dL (9-23)
[2017-04-29 07:30] LABS: POINT-OF-CARE METER ID UU14174225
[2017-04-29 08:02] VITALS: BP 107/65
[2017-04-29 12:34] LABS: POINT-OF-CARE METER ID UU14174225
[2017-04-29 13:15] VITALS: BP 101/70
[2017-04-29 16:34] VITALS: BP 104/72
[2017-04-29 16:48] LABS: POINT-OF-CARE METER ID UU14174225
[2017-04-29 20:03] VITALS: BP 119/76
[2017-04-30 00:53] VITALS: BP 108/71
[2017-04-30 04:55] VITALS: BP 113/74
[2017-04-30 07:23] LABS: ANION GAP 11 MEQ/L (2-14); CHLORIDE 90 MEQ/L (99-109); GFR ESTIMATE (CALCULATED) 31 mL/min/; GLUCOSE 121 mg/dL (70-99); POTASSIUM 3.8 MEQ/L (3.7-5.4); SAMPLE HEMOLYSIS CHECK 0; SAMPLE ICTERIC CHECK 0; SAMPLE LIPEMIA CHECK 0; SODIUM 138 MEQ/L (136-147); UREA NITROGEN (BUN) 47 mg/dL (9-23)
[2017-04-30 08:00] VITALS: BP 89/64
[2017-04-30 08:39] LABS: POINT-OF-CARE METER ID UU13113717
[2017-04-30 11:05] VITALS: BP 114/65
[2017-04-30] MEDS ORDERED: K-DUR20 MEQ PO (11:09)
[2017-04-30] MEDS ORDERED: MIDODRINE HCL5 MG PO (11:09)
[2017-04-30] MEDS ORDERED: METOLAZONE5 MG PO (11:10)
== END 2017-04-30 14:00 | disposition home health service (06) | DRG 292 ==
LOC: EME 23:02 → EDOF 04-25 02:11 → 5SOUTH 04-25 02:11 → ENRESERV 04-25 02:13 → 5SOUTH 04-25 03:09
PROVIDERS: Emergency Medicine; Hospitalist; Internal Medicine; Internal Medicine Nephrology; Nurse Practitioner Adult Health
DX: I50.23 Acute on chronic systolic (congestive) heart failure (principal); N18.3 Chronic kidney disease, stage 3 (moderate); E11.22 Type 2 diabetes mellitus with diabetic chronic kidney disease; I48.2 Chronic atrial fibrillation; E78.5 Hyperlipidemia, unspecified; I13.0 Hypertensive heart and chronic kidney disease with heart failure and stage 1 through stage 4 chronic kidney disease, or unspecified chronic kidney disease; I25.10 Atherosclerotic heart disease of native coronary artery without angina pectoris; J44.9 Chronic obstructive pulmonary disease, unspecified; I47.2 Ventricular tachycardia; G47.33 Obstructive sleep apnea (adult) (pediatric); I42.9 Cardiomyopathy, unspecified; I45.10 Unspecified right bundle-branch block; I34.0 Nonrheumatic mitral (valve) insufficiency; Z68.38 Body mass index [BMI] 38.0-38.9, adult; Z91.19 Patient's noncompliance with other medical treatment and regimen; Z91.14 Patient's other noncompliance with medication regimen; Z72.0 Tobacco use; Z79.82 Long term (current) use of aspirin; Z79.01 Long term (current) use of anticoagulants
CPT/HCPCS: 71010; 76705; 80048; 80048 91; 80053; 81003; 82948; 83605; 83690; 83735; 83880; 84484; 85027; 85610; 85730; 87040; 93005; 93970; 94640; 94640 76; 94660; 99281; 99285; J1815

== ENCOUNTER 2017-09-01 11:45 | Emergency (ER) | payer OTHER ==
[~2017-09-01] VITALS: Ht 172.7 cm; Wt 108.8 kg
[~2017-09-01 11:45] MED LIST changes: +K-DUR20 MEQ PO; +METOLAZONE5 MG PO; +MIDODRINE HCL5 MG PO; +SYMBICORT60 INHALAT IH
[2017-09-01 15:12] VITALS: BP 97/75
== END 2017-09-01 15:46 | disposition home or self-care (01) ==
LOC: EME 11:45
PROC: 0HQ0XZZ Repair Scalp Skin, External Approach (ICD-10-PCS; principal; 2017-09-01)
DX: S01.01XA Laceration without foreign body of scalp, initial encounter (principal); S09.90XA Unspecified injury of head, initial encounter; R40.2412 Glasgow coma scale score 13-15, at arrival to emergency department; I10 Essential (primary) hypertension; W01.0XXA Fall on same level from slipping, tripping and stumbling without subsequent striking against object, initial encounter; Z87.891 Personal history of nicotine dependence; Z79.01 Long term (current) use of anticoagulants; Z79.82 Long term (current) use of aspirin
CPT/HCPCS: 70450; 99281; 99285

== ENCOUNTER 2017-09-11 16:13 | Emergency (ER) | payer OTHER ==
[~2017-09-11] VITALS: Ht 172.7 cm; Wt 107.0 kg
[2017-09-11 18:25] LABS: HEMATOCRIT 46.9 % (38.0-50.0); MCH 32.8 PG (29.0-34.0); MCHC 34.1 G/DL (30.0-36.0); MCV 96.1 FL (86-99); PLATELET COUNT 104 K/uL (156-360); RED BLOOD COUNT 4.88 M/uL (4.00-5.50); WHITE BLOOD COUNT 6.6 K/uL (4.1-10.2)
[2017-09-11 18:34] LABS: CHLORIDE 97 mEq/L (99-109); POTASSIUM 3.7 mEq/L (3.7-5.4); SODIUM 137 mEq/L (136-147)
[2017-09-11 18:35] LABS: GLUCOSE 129 mg/dL (70-99)
[2017-09-11 18:39] LABS: CREATININE 3.2 mg/dL (0.6-1.3); GFR ESTIMATE (CALCULATED) 20 mL/min/ (58.99-99999)
[2017-09-11 18:40] LABS: UREA NITROGEN (BUN) 59 mg/dL (9-23)
[2017-09-11 21:00] VITALS: BP 100/78
== END 2017-09-11 21:09 | disposition home or self-care (01) ==
LOC: EME 16:13
PROVIDERS: Emergency Medicine
DX: S01.01XD Laceration without foreign body of scalp, subsequent encounter (principal); Z48.02 Encounter for removal of sutures; J90 Pleural effusion, not elsewhere classified; R60.0 Localized edema; I11.0 Hypertensive heart disease with heart failure; I50.9 Heart failure, unspecified; W18.30XD Fall on same level, unspecified, subsequent encounter; Z87.891 Personal history of nicotine dependence; Z79.82 Long term (current) use of aspirin; Z79.01 Long term (current) use of anticoagulants
CPT/HCPCS: 71046; 80048; 85027; 99281; 99284